=== PATIENT | female | born 1960 | race Caucasian/White ===

== ENCOUNTER → 2017-10-01 11:39 | Outpatient (CLI) | payer OTHER, SELFPAY ==
[2017-10-03 12:51] LABS: H. pylori Breath Test Negative (Negative)
== END ==
PROVIDERS: Visit Provider Physician Assistant
DX: K21.0 Gastro-esophageal reflux disease with esophagitis (principal)
CPT/HCPCS: 83013

== ENCOUNTER → 2017-10-16 09:05 | Outpatient (CLI) | payer OTHER, SELFPAY ==
--- NOTE | 2017-10-16 09:07 | FL_ITS ---
EXAM: Barium swallow/esophagram. INDICATION: heartburn, dyspepsia, belching, nausea, pain ORDERING PHYSICIAN: RADHA Delgado PATIENT AGE: 57 years COMPARISON: None TECHNIQUE: In the upright position the patient was observed to swallow barium in both the AP and lateral view. The cervical esophagus was examined under fluoroscopy with images obtained. The patient was then placed prone in the right anterior oblique position and was observed to swallow barium with Valsalva technique . FLUOROSCOPY TIME: 55 seconds FINDINGS: There was no evidence of aspiration. There was normal peristalsis. No filling defects or mucosal abnormalities. No masses or strictures. IMPRESSION: Negative barium swallow.
== END ==
PROVIDERS: PCP Physician Assistant; Visit Provider Physician Assistant
DX: K21.0 Gastro-esophageal reflux disease with esophagitis (principal)
CPT/HCPCS: 74220

== ENCOUNTER 2020-02-07 23:07 | Emergency (ER) | payer SELFPAY ==
[2020-02-07 23:16] VITALS: BP 166/95; PULSE 94; RESP 18; TEMP 37.8; O2SAT 96; BMI 51.9
[2020-02-07 23:30] LABS: Basophils % 0.7 % (0.1-2.0); Eosinophils % 0.3 % (0.1-12.0); Hematocrit 40.6 % (37.0-47.0); Hemoglobin 14.5 g/dL (12.2-16.2); Lymphocytes # 1.5 K/mm3 (0.7-4.5); Lymphocytes % 35.4 % (10-50); Mean Corpuscular HGB Conc 35.7 g/dL (31.8-35.4); Mean Corpuscular Hemoglobin 31.8 pg (27.0-31.2); Mean Corpuscular Volume 89.1 fl (81-99); Mean Platelet Volume 8.5 fl (7.4-10.4); Monocytes # 0.3 K/mm3 (0.1-1.0); Neutrophils # 2.5 K/mm3 (1.8-7.8); Neutrophils % 57.6 % (37.0-80.0); Platelet Count 155 K/mm3 (142-424); Red Blood Count 4.55 M/mm3 (4.20-5.40); Red Cell Distribution Width 13.7 % (11.5-17.5); White Blood Count 4.4 K/mm3 (4.8-10.8)
[2020-02-07 23:38] LABS: Alanine Aminotransferase 43 U/L (12-78); Albumin Level 4.3 g/dl (3.5-5.0); Albumin/Globulin Ratio 1.1 (1.1-1.8); Alkaline Phosphatase 188 U/L (38-126); Amylase 84 U/L (30-110); Anion Gap 11.4 mEq/L (5-15); Aspartate Amino Transferase 70 U/L (14-36); Bilirubin,Total 0.4 mg/dl (0.2-1.3); Blood Urea Nitrogen 13 mg/dl (7-17); Calcium 8.8 mg/dl (8.4-10.2); Carbon Dioxide 27 mmol/L (22.0-30.0); Chloride 100 mmol/L (98-107); Creatinine Clearance Estimated 47 mL/min (50-200); Estimated Glomerular Filt Rate 74 ml/min (>60); GFR (African American) 89 ML/MIN (>60); Globulin 3.9 g/dL (1.3-3.2); Glucose 125 mg/dl (74-100); Lipase 198 U/L (23-300); Potassium 3.4 mmoL/L (3.5-5.1); Sodium 135 mmol/L (136-145); Total Protein,Serum 8.2 g/dl (6.3-8.2)
[2020-02-07 23:45] LABS: Strep Scrn Group A (Rapid) Negative (Negative)
[2020-02-07 23:53] LABS: Lactic Acid 0.7 mmol/L (0.7-2.1)
--- NOTE | 2020-02-08 00:10 | HMH.EDFEV ---
ED Disposition Clinical Impression: Febrile illness, acute Disposition: Home, Self-Care Condition on Discharge: Good Instructions: DI for Fever (Symptom) -- Adult Additional Instructions: fluids and tyenol and see pcp for follow up Referrals: Vitor Ruff [Primary Care Provider] - - Critical Care Critical Care Time: No Attestation: On 02/07/20, the high probability of a clinically significant, sudden or life threatening deterioration of the following system(s) required my full and direct attention, intervention and personal management. The time I documented below is in addition to time spent performing reported procedures but includes the following listed in this critical care notation. Medical Decision Making - Medical Records Medical records reviewed: Yes: I reviewed the patient's medical records. - [place] Inquiry Pt receiving controlled substance: No Vital Signs: 02/07/20 23:16 02/08/20 00:18 Temperature 100.1 F H Temperature Source Oral Pulse Rate [Right Brachial] 94 H 102 H Respiratory Rate 18 18 Blood Pressure [Right Arm] 166/95 H 133/83 Blood Pressure Mean [Right Arm] 118 99 Blood Pressure Source [Right Arm] Automatic Cuff Blood Pressure Position [Right Arm] Sitting 02 Sat by Pulse Oximetry 96 98 Oxygen Delivery Method Room Air Room Air - Lab Data Lab results reviewed: Yes: I reviewed the patient's lab results. Lab Results 02/07/20 23:20: WBC 4.4 L, RBC 4.55, Hgb 14.5, Hct 40.6, MCV 89.1, MCH 31.8 H, MCHC 35.7 H, RDW 13.7, Plt Count 155, MPV 8.5, Neut % (Auto) 57.6, Lymph % (Auto) 35.4, [place] % (Auto) 6.0, Eos % (Auto) 0.3, Baso % (Auto) 0.7, Neut # (Auto) 2.5, Lymph # (Auto) 1.5, [place] # (Auto) 0.3, Eos # (Auto) 0.0, Baso # (Auto) 0.0 02/07/20 23:20: Sodium 135 L, Potassium 3.4 L, Chloride 100, Carbon Dioxide 27, Anion Gap 11.4, BUN 13, Creatinine 0.80, Estimated Creat Clear 47, Estimated GFR 74, Est GFR ( Amer) 89, Glucose 125 H, Calcium 8.8, Total Bilirubin 0.4, AST 70 H, ALT 43, Alkaline Phosphatase 188 H, Total Protein 8.2, Albumin 4.3, Globulin 3.9 H, Albumin/Globulin Ratio 1.1, Amylase 84, Lipase 198 02/07/20 23:20: Influenza Type A Ag Negative, Influenza Type B Ag Negative 02/07/20 23:20: Group A Strep Rapid Negative 02/07/20 23:20: ESR 76 H 02/07/20 23:20: C-Reactive Protein 12.7 H 02/07/20 23:20: SARS-CoV-2 IgG Ab (Rapid) Negative, SARS-CoV-2 IgM Ab (Rapid) Negative 02/07/20 23:30: Lactate 0.7 02/08/20 00:18: Urine Color Dk yellow, Urine Appearance Sl cloudy, Urine pH 5.5, Ur Specific [place] >= 1.030, Urine Protein 1+, Urine Glucose (UA) Negative, Urine Ketones Negative, Urine Blood Negative, Urine Nitrate Negative, Urine Bilirubin Negative, Urine Urobilinogen 0.2, Ur Leukocyte Esterase Negative, Urine WBC 3-5, Ur Squamous Epith Cells 20-50, Amorphous Sediment Trace, Urine Mucus 4+ Result diagrams: 02/07/20 23:20 02/07/20 23:20 Orders (Tests/Meds): ED MEDICATIONS Generic Name Dose Route Start Last Admin Trade Name Freq PRN Reason Stop Dose Admin Sodium Chloride 1,000 mls @ 999 mls/hr 02/07/20 23:30 02/07/20 23:50 Sod Chlor 0.9% 1000ml Bag IV 02/08/20 00:30 999 mls/hr .Q1H1M OCT[place] Administration Sodium Chloride 1,000 mls @ 999 mls/hr 02/08/20 01:15 02/08/20 01:10 Sod Chlor 0.9% 1000ml Bag IV 02/08/20 02:15 999 mls/hr .Q1H1M OCT[place] Administration Discontinued Medications Generic Name Dose Route Start Last Admin Trade Name Freq PRN Reason Stop Dose Admin Acetaminophen 1,000 mg 02/07/20 23:25 02/07/20 23:28 Tylenol 500mg Tablet PO 02/07/20 23:26 1,000 mg ONCE ONE Administration Ibuprofen 600 mg 02/07/20 23:25 07/04/20 23:29 Motrin 600mg Tablet PO 02/07/20 23:26 600 mg ONCE ONE Administration Ondansetron HCl 4 mg 02/07/20 23:25 02/07/20 23:29 Zofran 4mg/2ml Vial IV 02/07/20 23:26 4 mg ONCE ONE Administration ORDERS Category Date Time Status XR chest portable Stat Exams 02/07/20 23:21 Ordered Blood Cul
[2020-02-08 00:14] LABS: C-Reactive Protein 12.7 mg/L (0-4)
[2020-02-08 00:18] VITALS: BP 133/83; PULSE 102; RESP 18; O2SAT 98
[2020-02-08 00:22] LABS: Microscopic, Urine URINE MICROSCOPIC (MICROSCOPIC)
[2020-02-08 00:24] LABS: Coronavirus 19 IgG Antibody Negative (Negative); Coronavirus 19 IgM Antibody Negative (Negative)
[2020-02-08 00:31] LABS: Erythrocyte Sedimentation Rate 76 mm/hr (0-30)
[2020-02-08 00:37] LABS: Amorphous Sediment,Urine Trace /lpf; Appearance,Urine SL CLOUDY (Clear); Bilirubin,Urine Negative (Negative); Blood, Urine Negative (Negative); Color,Urine DK YELLOW (Yellow); Glucose,Urine (UA) Negative (Negative); Ketones,Urine Negative (Negative); Leukocyte Esterase,Urine Negative (Negative); Mucus,Urine 4+ /lpf; Nitrate,Urine Negative (Negative); PH,Urine 5.5 (5.0-8.5); Protein,Urine 1+ (Negative); Specific Gravity, Urine >= 1.030 (1.005-1.030); Squamous Epithelial Cell,Urine 20-50 #/hpf (0-5); Urobilinogen,Urine 0.2 EU/dl (0.2)
[2020-02-08 01:54] VITALS: BP 122/79; PULSE 79; RESP 19; TEMP 36.8; O2SAT 98
== END 2020-02-08 02:01 | disposition home or self-care (01) ==
PROVIDERS: Emergency Provider Emergency Medicine; PCP Family Medicine
DX: R50.9 Fever, unspecified (principal); K21.9 Gastro-esophageal reflux disease without esophagitis; Z90.09 Acquired absence of other part of head and neck
CPT/HCPCS: 80053; 81001; 82150; 83605; 83690; 85025; 85651; 86140; 86328; 87040; 87275; 87276; 87430; 96365; 96375; 99284; J2405